=== PATIENT | female | born 1965 | race Two or more races ===

== ENCOUNTER 2019-04-02 05:20 | Emergency (ER) | payer OTHER ==
[~2019-04-02] VITALS: Ht 160 cm; Wt 65.8 kg
--- NOTE | 2019-04-02 05:37 | NUR ---
BIBA FOR C/O HEARING VOICES TEELING HER "A DISASTER GOING TO HAPPEN". ALSO W/ SI AND PLANNING TO HURT HER SELF BY RUNNING IN TO TRAFFIC. PT WAS GOWNED UP AND PLACED ON A MONITOR, VSS. URINE COLLECTED AND SENT TO THE LAB.
--- NOTE | 2019-04-02 05:45 | NUR ---
PT'S BELONGINGS WAS PLACED UNDER THE SINK IN THE NURSING STATION
[2019-04-02 05:46] LABS: APPEARANCE,URINE Clear (CLEAR); BILIRUBIN,URINE Negative (NEGATIVE); BLOOD, URINE Negative Ery/uL (NEGATIVE); COLOR,URINE Yellow (YELLOW); KETONES,URINE Negative (NEGATIVE); LEUKOCYTE ESTERASE ,URINE Negative (NEGATIVE); NITRITE, URINE Negative (NEGATIVE); PH,URINE 6.5 (5.0-8.0); PROTEIN,URINE Negative (NEGATIVE); UGLUCOSE Negative (NEGATIVE); UROBILINOGEN,URINE 0.2 EU/dL (0.2)
[2019-04-02 05:58] LABS: BASOPHILS # (AUTO) 0.1 /CMM (0.0-0.2); BASOPHILS % (AUTO) 1.3 % (0.0-2.0); EOSINOPHILS % (AUTO) 2.4 % (0.0-6.0); HEMATOCRIT 37 % (33-45); HEMOGLOBIN 12.4 g/dL (11.5-14.8); LYMPHOCYTES % (AUTO) 21.3 % (20.0-44.0); MEAN CORPUSCULAR HGB CONC 34 g/dl (31.0-36.0); MEAN CORPUSCULAR VOLUME 91 fL (82-100); MONOCYTES # (AUTO) 0.4 /CMM (0.1-1.30); MONOCYTES % (AUTO) 8.9 % (2.0-12.0); NEUTROPHILS # (AUTO) 3.2 /CMM (1.8-8.9); NEUTROPHILS % (AUTO) 66.1 % (43.0-81.0); PLATELET COUNT (AUTO) 303 /CMM (150-450); RED BLOOD CELL COUNT(AUTO) 4.06 MIL/uL (4.0-5.2); WHITE BLOOD COUNT (AUTO) 4.8 K/uL (4.3-11.0)
[2019-04-02 06:03] LABS: CALCIUM, SERUM 8.5 mg/dL (8.5-10.1); CARBON DIOXIDE 26 mmol/L (21-32); CHLORIDE 108 mmol/L (98-107); CREATININE 0.7 mg/dL (0.6-1.3); GLUCOSE 113 mg/dL (74-106); POTASSIUM 3.6 mmol/L (3.5-5.1); SODIUM SERUM 144 mmol/L (136-145); UREA NITROGEN, BLOOD 16 mg/dL (7-18)
[2019-04-02 06:09] LABS: ALANINE AMINOTRANSFERASE 32 U/L (12-78); ALBUMIN 3.3 g/dL (3.4-5.0); ALKALINE PHOSPHATASE 100 U/L (46-116); ASPARTATE AMINOTRANSFERASE 29 U/L (15-37); BILIRUBIN,DIRECT 0.1 mg/dL (0.0-0.2); BILIRUBIN,TOTAL 0.2 mg/dL (0.2-1.0)
[2019-04-02 06:10] LABS: ACETAMINOPHEN 0 ug/ml (10-30); ALCOHOL, BLOOD < 3 mg/dL (0-0); SALICYLATE 0.7 mg/dL (2.8-20.0); TOTAL PROTEIN, SERUM 6.7 g/dL (6.4-8.2)
--- NOTE | 2019-04-02 06:29 | NUR ---
ART STATISTICS INTERN PAGED.
--- NOTE | 2019-04-02 07:21 | NUR ---
Patient is resting comfortably in bed with eyes closed. Easily aroused. VSS
--- NOTE | 2019-04-02 09:42 | NUR ---
MEAL TRAY PROVIDED. PT TOLERATING PO WELL
--- NOTE | 2019-04-02 10:58 | NUR ---
HELLEN GROSSMAN AT BEDSIDE FOR EVAL
--- NOTE | 2019-04-02 12:40 | NUR ---
accepted so md elda kaba rn for report [phone] ext [phone]
--- NOTE | 2019-04-02 13:21 | NUR ---
REPORT GIVEN TO FUENTES AT [facility]. TRANSPORTED, STABLE VITALS.
[2019-04-02 13:22] VITALS: BP 145/91
== END 2019-04-02 13:26 ==
LOC: ER 05:25
DX: R45.851 Suicidal ideations (principal); F31.9 Bipolar disorder, unspecified; I10 Essential (primary) hypertension; F29 Unspecified psychosis not due to a substance or known physiological condition
CPT/HCPCS: 36415; 80048; 80076; 80305; 80307; 80329; 81001; 85025; 99285; G0480; 81000-TC

== ENCOUNTER 2019-09-25 19:48 | Emergency (ER) | payer OTHER ==
[~2019-09-25] VITALS: Ht 147.3 cm; Wt 57.6 kg
--- NOTE | 2019-09-25 19:50 | NUR ---
PT AAOX4. AMBULATORY WITH STEADY GAIT. C/O "I'VE BEEN SO RESTLESS, IT'S HARD TO PAY ATTENTION, AND I'M AGITATED" PT HAS PLAN TO SI WITH PLAN TO "INJECT SELF WITH SOMETHING AND NEVER WAKE UP" VSS. PLACED IN GOWN, BELONINGS IN LOCKER.
[2019-09-25 20:34] LABS: BASOPHILS % (AUTO) 0.8 % (0.0-2.0); EOSINOPHILS % (AUTO) 1.7 % (0.0-6.0); HEMATOCRIT 38 % (33-45); HEMOGLOBIN 12.6 g/dL (11.5-14.8); LYMPHOCYTES # (AUTO) 1.5 /CMM (0.8-4.8); LYMPHOCYTES % (AUTO) 27.3 % (20.0-44.0); MEAN CORPUSCULAR HGB CONC 34 g/dl (31.0-36.0); MEAN CORPUSCULAR VOLUME 92 fL (82-100); MONOCYTES # (AUTO) 0.5 /CMM (0.1-1.30); MONOCYTES % (AUTO) 9.7 % (2.0-12.0); NEUTROPHILS # (AUTO) 3.3 /CMM (1.8-8.9); NEUTROPHILS % (AUTO) 60.5 % (43.0-81.0); PLATELET COUNT (AUTO) 312 /CMM (150-450); WHITE BLOOD COUNT (AUTO) 5.5 K/uL (4.3-11.0)
--- NOTE | 2019-09-25 20:36 | NUR ---
URINE COLELCTED AND SENT TO LAB. LABS WELL.
[2019-09-25 20:40] LABS: APPEARANCE,URINE Clear (CLEAR); BILIRUBIN,URINE Negative (NEGATIVE); BLOOD, URINE Negative Ery/uL (NEGATIVE); COLOR,URINE Yellow (YELLOW); KETONES,URINE Negative (NEGATIVE); LEUKOCYTE ESTERASE ,URINE Negative (NEGATIVE); NITRITE, URINE Negative (NEGATIVE); PROTEIN,URINE Negative (NEGATIVE); UGLUCOSE Negative (NEGATIVE); UROBILINOGEN,URINE 0.2 EU/dL (0.2)
--- NOTE | 2019-09-25 20:59 | NUR ---
Patient is resting comfortably in bed. Easily aroused. VSS.
[2019-09-25 21:02] LABS: ALANINE AMINOTRANSFERASE 21 U/L (12-78); ALBUMIN 4.1 g/dL (3.4-5.0); ALCOHOL, BLOOD < 3 mg/dL (0-0); ALKALINE PHOSPHATASE 84 U/L (46-116); ASPARTATE AMINOTRANSFERASE 22 U/L (15-37); BILIRUBIN,DIRECT 0.1 mg/dL (0.0-0.2); BILIRUBIN,TOTAL 0.3 mg/dL (0.2-1.0); CALCIUM, SERUM 9.8 mg/dL (8.5-10.1); CARBON DIOXIDE 32 mmol/L (21-32); CHLORIDE 103 mmol/L (98-107); CREATININE 0.8 mg/dL (0.6-1.3); GLUCOSE 104 mg/dL (74-106); POTASSIUM 3.4 mmol/L (3.5-5.1); SODIUM SERUM 143 mmol/L (136-145); TOTAL PROTEIN, SERUM 7.7 g/dL (6.4-8.2); UREA NITROGEN, BLOOD 14 mg/dL (7-18)
[2019-09-25 21:40] LABS: ACETAMINOPHEN 0 ug/ml (10-30)
[2019-09-25] MEDS ORDERED: LORAZEPAM 1 MG TABLET ONE (22:10)
--- NOTE | 2019-09-25 22:13 | NUR ---
PT RESTING COMFORTABLY. VSS.
[2019-09-25] MEDS ORDERED: LORAZEPAM 1 MG TABLET PO ONE (22:30)
[2019-09-26] MEDS ORDERED: POTASSIUM CHLORIDE 20 MEQ TAB.PRT.SR PO ONE ×2
--- NOTE | 2019-09-26 00:11 | NUR ---
PT ACCEPTED TO [facility] BY DR RAZO. # FOR REPORT [phone]
--- NOTE | 2019-09-26 00:34 | NUR ---
called call the car for transport reservation number [phone] expecting call back within 30 mins with transport eta
--- NOTE | 2019-09-26 00:47 | NUR ---
ambulife eta 45 mins
--- NOTE | 2019-09-26 01:06 | NUR ---
GAVE REPORT TO BRANDY TALBERT FOR PASCALE
[2019-09-26 01:11] VITALS: BP 116/68
== END 2019-09-26 01:12 | disposition short-term general hospital (02) ==
LOC: ER 19:49
DX: R45.851 Suicidal ideations (principal); I10 Essential (primary) hypertension; F32.9 Major depressive disorder, single episode, unspecified
CPT/HCPCS: 36415; 80048; 80076; 80305; 80307; 80329; 81001; 85025; 99285; G0480; 81000-TC